=== PATIENT | male | born 1960 | race Caucasian/White ===

== ENCOUNTER 2020-04-28 22:39 | Emergency (ER) | payer SELFPAY ==
[~2020-04-28] VITALS: Ht 179.1 cm; Wt 79.5 kg
[2020-04-28 22:39] VITALS: BP 115/81
[~2020-04-28 22:39] MED LIST: ACET-159 PO; BACL10TA PO; CYCL-331 PO; HYDR-2155 PO; NAPR-514 PO; PANT40TA3 PO; SUCR1TAB35 PO; TRAM-48 PO
--- NOTE | 2020-04-29 00:09 | PHYS DOC ---
Past History Past Medical History: Alcoholism Past Surgical History: No Surgical History Alcohol Use: Occasionally Drug Use: None General Adult EDM: Chief Complaint: SUICIDAL IDEATION HPI: HPI: 60-year-old male past medical history of spinal stenosis (on Celebrex and gabapentin) and alcohol abuse, presents to the ED brought in by EMS after patient called the police requesting someone to talk to. Patient reports he had a few drinks and " had a moment." States he requested someone to talk to because " I was done living." Patient states his left him approximately 8 months ago, he is out of work and has no money for food. States he had a brief depressed moment after he had a few drinks of alcohol. Is very upset police "forced him" to come to the emergency department. No prior history of psychiatric admissions. No prior history of suicidal thoughts or attempts. Denies any drug use tonight. In the ED patient denies any active suicidal thoughts or plan-reports he does not want to end his life. ROS: Denies associated hallucinations, homicidal ideations, fever, chills, cough, sore throat, dyspnea, chest pain, nausea, vomiting, diarrhea, abdominal pain, back pain, headache, leg swelling, rash or symptoms. Review of Systems: Review of Systems: Constitutional: Denies fever or chills Eyes: Denies change in visual acuity HENT: Denies nasal congestion or sore throat Respiratory: Denies cough or shortness of breath Cardiovascular: Denies chest pain or edema GI: Denies abdominal pain, nausea, vomiting, bloody stools or diarrhea : Denies dysuria Musculoskeletal: Denies back pain or joint pain Integument: Denies rash Neurologic: Denies headache, focal weakness or sensory changes Endocrine: Denies polyuria or polydipsia Lymphatic: Denies swollen glands Psychiatric: Denies depression or anxiety Allergies: Allergies: Allergies Coded Allergies Type Severity Reaction Last Updated Verified No Known Drug Allergies 06/30/15 No Physical Exam: PE: Constitutional: Well developed, well nourished, no acute distress, unkept appearance, smells of alcohol HENT: Normocephalic, atraumatic, bilateral external ears normal, oropharynx moist, no oral exudates, nose normal. [] Eyes: EOMI, conjunctiva normal, no discharge. [] Neck: Normal range of motion, no tenderness, supple, no stridor. [] Cardiovascular:Heart rate regular rhythm, no murmur [] Lungs & Thorax: Bilateral breath sounds clear to auscultation [] Abdomen: Bowel sounds normal, soft, no tenderness, no masses, no pulsatile masses. [] Skin: Warm, dry, no erythema, no rash. [] Back: No tenderness, no CVA tenderness. [] Extremities: No tenderness, no cyanosis, no clubbing, ROM intact, no edema. [] Neurologic: Alert and oriented X 3, normal motor function, normal sensory function, no focal deficits noted. [] Psychologic: Emotional and upset he is in the emergency department, required significant verbal de-escalation - eventually pt cooperated with exam/assessment EKG: EKG: [] Radiology/Procedures: Radiology/Procedures: [] Course & Med Decision Making: Course & Med Decision Making Pertinent Labs and Imaging studies reviewed. (See chart for details) Patient presented to the ED intoxicated, after expressing vague statements concerning for suicide. Patient is not actively suicidal. Labs and urine study shows polysubstance abuse. Suspect substance-induced mood disorder. Patient now clinically sober with medical decision-making capacity, denies any suicidal or homicidal thoughts. Is not a danger to himself. Patient has been evaluated by [facility] who agrees that pt does not meet criteria for inpatient psychiatry care. Pt reasonable-agrees with return if he hs any SI thoughts or plans. Encouraged PMD follow-up and will refer [facility]. Life- threatening processes were considered, low suspicion at this time. All of patient's questions were answered and he was stable at time of discharge. I spoken with the patient and her caregivers. I explained the patient's condition, diagnoses and treatment plan based on the information available to me at this time. I have answered the patient and her caregiver's questions and addressed any concerns. The patient and her caregivers have a good understanding of patient's diagnosis, condition and treatment plan as can be expected at this point. Vital signs have been stable. Patient's condition is stable and appropriate for discharge from the emergency department. Patient will pursue further outpatient evaluation with primary care physician or other designated or consulting physician as outlined in the discharge instructions. The patient and/or caregivers are agreeable to this plan of care and follow-up instructions have been explained in detail. The patient and/or caregivers have received these instructions in written form and have expressed an understanding of the discharge instructions. The patient and/or caregivers are aware that any significant change of condition or worsening of symptoms should prompt immediate return to this or the closest emergency department or call to 911. Xavier Disclaimer: Xavier Disclaimer: This electronic medical record was generated, in whole or in part, using a voice recognition dictation system. Departure Departure: Impression: Primary Impression: Brief depressive reaction Additional Impressions: Alcohol intoxication Cocaine abuse Tetrahydrocannabinol (THC) use disorder, mild, abuse Disposition: 01 HOME/RESIDENCE PRIOR TO ADM Condition: STABLE Referrals: PCP,UNKNOWN (PCP) Patient Instructions: Depression, Adult, Polysubstance Abuse Additional Instructions: The [address] [id number] Justification of Admission: Justification of Admission: Justification of Admission Dx: N/A LENNY LESTER DO Apr 29, 2020 00:09
[2020-04-29 00:14] LABS: BASO # 0.1 x10^3/uL (0.0-0.2); BASO % 1 % (0-3); EOS # 0.1 x10^3/uL (0.0-0.7); EOS % 1 % (0-3); HEMOGLOBIN 17.4 g/dL (13.0-17.5); LYMPH # 2.8 x10^3/uL (1.0-4.8); LYMPH % 27 % (24-48); MEAN CORPUSCULAR HEMOGLOBIN 31 pg (25-35); MEAN CORPUSCULAR HGB CONC 33 g/dL (31-37); MEAN CORPUSCULAR VOLUME 93 fL (79-100); MONO # 0.6 x10^3/uL (0.0-1.1); MONO % 6 % (0-9); NEUT # 6.7 x10^3uL (1.8-7.7); NEUT % 65 % (31-73); PLATELET COUNT 233 x10^3/uL (140-400); RED BLOOD COUNT 5.59 x10^6/uL (4.30-5.70); RED CELL DISTRIBUTION WIDTH 14.6 % (11.5-14.5); WHITE BLOOD COUNT 10.3 x10^3/uL (4.0-11.0)
[2020-04-29 00:20] LABS: GFR 76.5; POTASSIUM 3.7 mmol/L (3.5-5.1)
[2020-04-29 00:22] LABS: BARBITURATES NEG (NEG); BENZODIAZEPINES NEG (NEG); CANNABINOIDS POS (NEG); COCAINE POS (NEG); METHADONE NEG (NEG); OPIATES NEG (NEG); PHENCYCLIDINE NEG (NEG)
[2020-04-29 00:26] LABS: ALBUMIN 3.7 g/dL (3.4-5.0); ALBUMIN/GLOBULIN RATIO 1.1 (1.0-1.7); TOTAL BILIRUBIN 0.2 mg/dL (0.2-1.0)
[2020-04-29 00:28] LABS: AMPHETAMINE/METHAMPHETAMINE NEG (NEG)
[2020-04-29 00:59] LABS: BACTERIA,URINE 0 /HPF (0-FEW); BILIRUBIN,URINE NEG (NEG); CLARITY,URINE CLEAR; COLOR,URINE YELLOW; GLUCOSE,URINE NEG (NEG); NITRITE,URINE NEG (NEG); RBC,URINE 0 /HPF (0-2); SQUAMOUS EPITHELIAL CELL,UR OCC /LPF; UROBILINOGEN,URINE 0.2 mg/dL (0.2 mg/dL); WBC,URINE RARE /HPF (0-4)
== END 2020-04-29 03:00 | disposition home or self-care (01) ==
LOC: ER 22:39
DX: F32.9 Major depressive disorder, single episode, unspecified (principal); F10.229 Alcohol dependence with intoxication, unspecified; F14.10 Cocaine abuse, uncomplicated; F19.10 Other psychoactive substance abuse, uncomplicated; Y90.5 Blood alcohol level of 100-119 mg/100 ml
CPT/HCPCS: 36415; 80053; 80307; 81001; 85025; 99283; G0480